=== PATIENT | female | born 1995 | race Caucasian/White ===

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

== ENCOUNTER 2018-06-17 01:22 | Inpatient (IN) ==
[2018-06-17] MEDS ORDERED: NALBUPHINE HCL 10 MG/ML AMPUL IV PRN (01:51)
[2018-06-17] MEDS ORDERED: OXYTOCIN/DEXTROSE 5%-WATER 30 UNITS/500 ML BAG IV ONE ×3 (01:51→07:10)
[2018-06-17] MEDS ORDERED: RINGER'S SOLUTION,LACTATED 1,000 ML IV PRN ×2 (01:51→03:57)
[2018-06-17] MEDS ORDERED: DEXTROSE 5%-LACTATED RINGERS 1,000 ML IV PRN (01:51)
[2018-06-17] MEDS ORDERED: LIDOCAINE HCL 50 ML VIAL PERI PRN ×2 (01:51→03:57)
[2018-06-17] MEDS ORDERED: RINGER'S SOLUTION,LACTATED 1,000 ML IV ONE (01:51)
[2018-06-17] MEDS ORDERED: ONDANSETRON HCL/PF 2 MG/ML VIAL IV PRN ×2 (01:54→02:17)
[2018-06-17] MEDS ORDERED: BUPIVACAINE HCL/0.9 % NACL/PF 250 ML EP PRN (02:17)
[2018-06-17] MEDS ORDERED: NALOXONE HCL 1 MG/1 ML SYRG IV PRN (02:17)
[2018-06-17] MEDS ORDERED: BUPIVACAINE HCL/PF 30 ML VIAL EP SCH (02:30)
--- NOTE | 2018-06-17 02:37 | ANES ---
Anesthesia Pre Procedure Eval Vitals/Labs: Last Vital Signs Temp 36.3 C 06/17/18 02:22 Pulse 113 H 06/17/18 02:22 Resp 20 06/17/18 02:22 BP 140/88 H 06/17/18 02:22 Pulse Ox 100 06/17/18 02:22 HOME MEDICATIONS ferrous sulfate 325 mg (65 mg iron) tablet,delayed release 325 mg PO DAILY tab 05/13/18 [Last Taken 06/14/18] Acetaminophen [Tylenol] 650 mg PO PRN PRN 06/10/18 [Last Taken 06/15/18 17:30] Vits96/Iron Fum/Folic [ S] 1 tab PO DAILY 06/16/18 [Last Taken 06/14/18] Allergies/Adverse Reactions: Allergies Allergy/AdvReac Type Severity Reaction Status Date / Time No Known Allergies Allergy Verified 06/17/18 02:07 - Planned Procedure Planned Procedure: Labor epidural Medication List Reviewed:: Yes Allergies Verified: Yes Medical History (Updated 06/16/18 @ 10:13 by Safia Kitchen MD) Depression going to counseling Impacted tooth Onset Date: Unknown Spontaneous Onset Date: ~07/25/17 approx. 6 weeks, no D&C Surgical History (Updated 06/16/18 @ 10:13 by Safia Kitchen MD) [place] teeth extracted Onset Date: Unknown Family History (Updated 01/07/18 @ 14:00 by Radha Greenberg LPN) Mother Alive and well Father Alive and well Grandfather Hypertension maternal Alzheimers disease maternal Grandfather Myocardial infarction paternal Grandmother Alzheimers disease maternal great grandmother - Cardiovascular Tolerate Activity: Good Heart Sounds: S1 & S2, Regular - Anesthesia Assessment and Plan ASA Class: PS, II Anesthesia Type Plan: Epidural
--- NOTE | 2018-06-17 02:57 | ANES ---
Anesthesia Procedure Note Procedure Note: ANESTHESIA PROCEDURE NOTE Date of Procedure: 06/17/2018 Time of procedure: 0. Performed by: Fabricio Pinto CRNA Mechanical Unit Repairer: None. Preprocedure diagnosis: Active labor. Post procedure diagnosis: Same. Procedure: Insertion of labor epidural. Indications: The patient is a 23 -year-old female in active labor requesting labor epidural for pain management. Findings: See below. Details of the procedure: The patient was placed in a sitting position. DuraPrep as well as Betadine swabs X3 was applied to the patient's back. Patient was then draped in a sterile fashion. Lidocaine 1% was infiltrated to the skin and subcutaneous tissues at the level of the L3-4 interspace. The epidural space was identified using a 18-gauge Tuohy needle with [id number] technique. Epidural catheter was inserted to a depth of 9 centimeters at skin. Negative test dose was elicited using 3 mL of 2% preservative-free lidocaine plus epinephrine 1 200,000. The epidural catheter was then taped and secured in place. A loading dose of 8 mL of 0.25% preservative-free bupivacaine was administered to the epidural catheter after negative aspiration for blood and CSF. EBL: Minimal. Fluids: N/A. Specimen: N/A. Post procedure condition: The patient tolerated the procedure well. No complications were noted. Thank you for this consultation. Fabricio Pinto CRNA
--- NOTE | 2018-06-17 02:58 | ANES ---
Post Anesthesia Assessment - Vital Signs Vitals: Last Vital Signs Temp 37.3 C 06/17/18 02:54 Pulse 101 H 06/17/18 02:54 Resp 18 06/17/18 02:54 BP 154/87 H 06/17/18 02:54 Pulse Ox 100 06/17/18 02:54 Airway Patency: Normal - Mental Status Level Of Consciousness: Awake - N/V Assessment Nausea/Vomiting Presence: None Dehydration:: No
--- NOTE | 2018-06-17 04:10 | HP ---
Chief Complaint - Chief Complaint Date of Service: 06/17/18 Time of Service: 04:01 Chief Complaint: contractions and vomiting History of Present Illness: The patient presented twice from home today. She was given an ambien as she was in latent labor. She was unable to sleep through her contractions and the pain and thus she returned. She also had vomiting and couldn't keep any PO intake. She denies ctx. Denies loss of fluid. There was vaginal bleeding. She reports decreased movement Medical History (Updated 06/16/18 @ 10:13 by Safia Kitchen MD) Depression going to counseling Impacted tooth Onset Date: Unknown Spontaneous Onset Date: ~07/25/17 approx. 6 weeks, no D&C Surgical History: Surgical History (Updated 06/16/18 @ 10:13 by Safia Kitchen MD) [place] teeth extracted Onset Date: Unknown Family History: Family History (Updated 01/07/18 @ 14:00 by Radha Greenberg LPN) Mother Alive and well Father Alive and well Grandfather Hypertension maternal Alzheimers disease maternal Grandfather Myocardial infarction paternal Grandmother Alzheimers disease maternal great grandmother Social History: Preferred Language Tajik Smoking Status Former smoker Abuse History No History of abuse Psych History No pertinent hx (Last Updated 06/14/18 @ 15:15 by Safia Kitchen MD) No Social History Section defined Review Of Systems (GEN) - Review of Systems Generalized/Overall Review: Present: No Symptoms Reported Misc: All systems neg except as marked Immunizations: IMMUNIZATION HX Immunizations Up to Date Yes History of Influenza Vaccine No Hx Pneumococcal Vaccination No Allergies/Adverse Reactions: Allergies Allergy/AdvReac Type Severity Reaction Status Date / Time No Known Allergies Allergy Verified 06/17/18 02:07 Home Medications: HOME MEDICATIONS ferrous sulfate 325 mg (65 mg iron) tablet,delayed release 325 mg PO DAILY tab 05/13/18 [Last Taken 06/14/18] Acetaminophen [Tylenol] 650 mg PO PRN PRN 06/10/18 [Last Taken 06/15/18 17:30] Vits96/Iron Fum/Folic [ S] 1 tab PO DAILY 06/16/18 [Last Taken 06/14/18] Exam - Exam Vital Signs: Vital Signs - Last Taken Temp 37.3 C 06/17/18 02:54 Pulse 101 H 06/17/18 02:54 Resp 18 06/17/18 02:54 BP 154/87 H 06/17/18 02:54 Pulse Ox 100 06/17/18 02:54 Constitutional: Present: Alert, Oriented x3, Cooperative, No distress Cardiovascular/Chest: Present: regular rate, rhythm, no murmur Abdomen: Present: soft, nontender, nondistended Extremity: Present: non-tender, no calf tenderness Skin Exam: Present: normal color, warm/dry, no cyanosis Appearance: Present: appropriate appearance Eye contact: Present: cooperative Thoughts: Present: normal thought pattern Assessment/Plan - Narrative Narrative: 23 year old @ 36w 3d in labor I was called by RN due to tachycardia with a baseline of 195 and minimal variability. When I arrived the baseline had decreased to 160 and there was moderate variability and accelerations. However, there was also vaginal bleeding that was a little more than bloody show. For this reason delivery is now indicated and AROM was performed for a small amount of clear fluid. Pitocin started due to no contractions right now. GBS is negative so prophylaxis not indicated
[2018-06-17] MEDS ORDERED: BISACODYL 10 MG SUPP.RECT RC PRN (07:10)
[2018-06-17] MEDS ORDERED: BENZOCAINE/MENTHOL 81 SPRAY CAN TP PRN (07:10)
[2018-06-17] MEDS ORDERED: oxyCODONE HCL/ACETAMINOPHEN 1 TAB TABLET PO PRN ×2 (07:10)
[2018-06-17] MEDS ORDERED: IBUPROFEN 800 MG TABLET PO PRN (07:10)
[2018-06-17] MEDS ORDERED: HYDROCORTISONE 30 APPL TUBE TP PRN (07:10)
[2018-06-17] MEDS ORDERED: SENNOSIDES 8.6 MG TABLET PO PRN (07:10)
[2018-06-17] MEDS ORDERED: GLYCERIN/WITCH HAZEL LEAF 40 APPL BOX TP PRN (07:10)
[2018-06-17] MEDS ORDERED: diphenhydrAMINE HCL 25 MG CAPSULE PO PRN (07:10)
--- NOTE | 2018-06-17 07:10 | OR ---
Operative Report - Dictated Report Narrative: Date of delivery: 06/17/2018 Time of delivery: 06 Gender: male APGARS: 99 weight: 3052 grams Procedure: Description of the procedure: The patient is a 23 year old @ 36w 3d with GHTN who had cervical changed from 1 cm to 2 cm and then 3 cm. She then developed tachycardia with minimal variability and variable decelerations. For this reason and also due to vaginal bleeding that appeared to be more than just bloody show I ruptured her membranes and started pitocin. She progressed to complete dilation. She delivered a viable male over a 2nd degree perineal laceration in the direct OA presentation. Cord clamping was delayed for 60 sec onds due to vigorous infant. The cut was clamped and cut and the was placed on the mother's abdomen. The placenta was delivered by expression and appeared intact. The second degree perineal laceration was repaired in the standard surgical fashion using 2-0 vicryl. Cytotec 800 mcg was given rectally due to brisk bleeding that resolved. EBL: 300 mL Lacerations: 2nd degree vaginal/perineal Complications: none Specimen: placenta Definition: * The number of deliveries resulting in a live the patient experienced prior to current hospitalization * The previous delivery of live twins or any live multiple gestation is considered one live event. *If primagravida or nulliparous is documented select zero for the number of previous live births. Live Births: 0
[2018-06-17] MEDS ORDERED: KETOROLAC TROMETHAMINE 30 MG/ML VIAL IV PRN (07:52)
--- NOTE | 2018-06-17 07:57 | PN ---
Progess Note - Interim Date: 06/17/18 Time: 07:56 Narrative: 06/17/18 07:56 The patient had an oral temperature of 38.2 C consistent with a diagnosis of chorioamnionitis. Ampicillin, clindamycin, and gentamicin for 24 hours ordered
[2018-06-17] MEDS: AMPICILLIN SODIUM 2,000 MG in NORMAL SALINE 100 ML IV SCH ×3 (08:30→20:13)
[2018-06-17] MEDS ORDERED: GENTAMICIN SULFATE 80 MG in DEXTROSE 5 % IN WATER 100 ML IV ONE ×2 (09:00)
[2018-06-17] MEDS: CLINDAMYCIN PHOSPHATE 900 MG in DEXTROSE 5 % IN WATER 100 ML IV SCH ×4 (09:06→16:33)
[2018-06-17] MEDS ORDERED: MISOPROSTOL 200 MCG TABLET RC ONE (09:33)
[2018-06-17] MEDS: DOCUSATE SODIUM 100 MG CAPSULE PO SCH ×2 (09:44→20:13)
[2018-06-18] MEDS: CLINDAMYCIN PHOSPHATE 900 MG in DEXTROSE 5 % IN WATER 100 ML IV SCH ×2 (00:27)
[2018-06-18] MEDS: AMPICILLIN SODIUM 2,000 MG in NORMAL SALINE 100 ML IV SCH (01:03)
[2018-06-18 07:23] VITALS: BP 119/88
[2018-06-18] MEDS: DOCUSATE SODIUM 100 MG CAPSULE PO SCH (08:05)
--- NOTE | 2018-06-18 10:02 | PN ---
Subjective - Date and Time Seen Date: 06/18/18 Time: 10:01 Subjective Narrative: Pt without complaints Objective Objective Narrative: See vital signs - Review of Systems Generalized/Overall Review: Reports: No Symptoms Reported Misc: All systems neg except as marked - Vitals Vitals: Last Vital Signs Temp 36.4 C 06/18/18 07:10 Pulse 92 06/18/18 07:10 Resp 18 06/18/18 07:10 BP 119/88 06/18/18 07:10 Pulse Ox 100 06/18/18 07:10 - Exam Constitutional: Present: Alert, Oriented x3, Cooperative, No distress Abdomen: Present: soft, nontender, nondistended Extremity: Present: non-tender, no calf tenderness Skin Exam: Present: normal color, warm/dry, no cyanosis Appearance: Present: appropriate appearance Eye contact: Present: cooperative Thoughts: Present: normal thought pattern Cauti Physician Documentation - Urinary Catheter Management Urethral (Gutierrez) Urethral Indwelling: No Date of Insertion: 06/17/18 Time of Insertion: 03:00 Assessment/Plan Plan Narrative: PPD 1 s/p Doing well Discharge home as the patient's baby was transferred to [place]
== END 2018-06-18 10:25 | disposition home or self-care (01) | DRG 805 ==
LOC: OBCLINIC 01:22 → OB 01:52
PROVIDERS: ADMIT Obstetrics & Gynecology; ATTEND Obstetrics & Gynecology
CPT/HCPCS: 59025; 88307; J2405